=== PATIENT | female | born 1970 | race Caucasian/White ===

== ENCOUNTER 2016-10-18 15:11 | Emergency (ER) | payer MEDICARE, MEDICAID ==
[~2016-10-18 15:11] MED LIST: KEPPRA500 M3 PO; LEVETIRACETAM500 M2 PO; NO HOME MEDICATION; PREVALITE PAC4 G/PKT PO; PROAIR HFA8.5 GM IH; ZITHROMAX250 M1 PO; [UNRECOGNIZED DRUG - OTHER]
[2016-10-18] MEDS ORDERED: PROAIR HFA8.5 GM INH (16:35)
[2016-10-18] MEDS ORDERED: ZITHROMAX250 M1 PO (16:35)
[2017-04-22] MEDS ORDERED: LAMICTAL (02:13)
== END 2016-10-18 16:48 ==
LOC: EDMED 15:11
DX: J45.909 Unspecified asthma, uncomplicated (principal); Z90.49 Acquired absence of other specified parts of digestive tract; Z88.2 Allergy status to sulfonamides; Z88.1 Allergy status to other antibiotic agents; Z79.51 Long term (current) use of inhaled steroids; Z79.899 Other long term (current) drug therapy